=== PATIENT | male | born 1940 | race Caucasian/White ===

== ENCOUNTER 2022-11-03 14:38 | Emergency (ER) | payer MEDICARE, BC ==
[~2022-11-03] VITALS: Ht 170.2 cm; Wt 91.8 kg
[~2022-11-03 14:38] MED LIST: AMBIEN 10MG10 M1 PO; ASPIRIN E.C. 8181 MG PO; FENOFIBRATE MI200 MG PO; FORTAMET1000 MG PO; GABAPENTIN300 MG PO; GARLIQUE400 MG PO; GLYBURIDE5 MG PO; LOPRESSOR 225 MG/TAB PO; LORTAB 5/500 501 TAB PO; MAREPA1200 MG PO; MICARDIS HCT 121 TAB PO; MULTIPLE VITAMI1 CAP PO; NTG 0.4; PLAVIX 75MG TAB75 MG PO; SIMVASTATIN80 MG PO; TUSS PO; ZITHROMAX Z PA250 MG PO; ZYMAR OPHTH SOL5 ML OP
[2022-11-03 15:10] LABS: PARTIAL THROMBOPLASTIN TIME 17.9 SECONDS (26.0-37.0)
[2022-11-03 15:17] LABS: ALBUMIN 2.5 gm/dL (3.4-4.8); BILIRUBIN,TOTAL 0.4 mg/dL (0.2-1.2); CALCIUM 8.8 mg/dL (8.4-10.2); CREATININE, serum 1.85 mg/dL (0.72-1.25); POTASSIUM 4.2 mmol/L (3.5-4.5); TOTAL PROTEIN 5.8 gm/dL (6.2-8.1)
[2022-11-03 15:27] LABS: TROPONIN-I 0.034 ng/mL (0.00-0.033)
[2022-11-03 15:37] LABS: BASO # 0.1 K/mm3 (0.0-0.2); BASO % 0.5 % (0.0-2.0); GRAN # 13.8 K/mm3 (1.4-6.5); GRAN % 88.9 % (42.2-75.2); HEMOGLOBIN 10.1 g/dl (13.5-18.0); LYMPH % 6.6 % (20.0-51.0); MEAN CELL VOLUME 88 fl (80.0-100.0); MEAN CORPUSCULAR HEMOGLOBIN 30 pg (27-31); MEAN CORPUSCULAR HGB CONC 34 g/dl (33.0-37.0); MONO # 0.5 K/mm3 (0.1-0.6); MONO % 3.4 % (1.7-9.3); PLATELET COUNT 382 K/mm3 (130-400); RED BLOOD COUNT 3.37 M/mm3 (4.20-5.60); REDCELL DISTRIBUTION WIDTH-CV 13.9 % (11.5-14.5)
[2022-11-03 15:39] LABS: HEMATOCRIT 29.7 % (42.0-52.0)
[2022-11-03] MEDS ORDERED: AMBIEN 10MG10 MG (17:13)
[2022-11-03] MEDS ORDERED: GLUCOPHAGE1000 MG PO (17:13)
[2022-11-03] MEDS ORDERED: GLUCOTROL 5M5 MG/TAB PO (17:14)
[2022-11-03] MEDS ORDERED: LOPRESSOR 550 MG/TAB PO (17:14)
[2022-11-03] MEDS ORDERED: LOPID 600M600 MG/TAB PO (17:14)
[2022-11-03] MEDS ORDERED: HYZAAR 12.5 MG-1 TAB (17:16)
[2022-11-03] MEDS ORDERED: NEURONTIN300 MG/CAP (17:16)
[2022-11-03] MEDS ORDERED: PRAVACHOL 40MG40 MG PO (17:17)
[2022-11-03] MEDS ORDERED: BACTROBAN 22GM22 GM (17:20)
[2022-11-03 19:50] VITALS: BP 129/90; PULSE 90; TEMP 98.3
== END 2022-11-03 19:55 | disposition short-term general hospital (02) ==
LOC: COL.ER 14:38
PROVIDERS: Emergency Medicine; Family Medicine
DX: S50.812A Abrasion of left forearm, initial encounter (principal); I21.4 Non-ST elevation (NSTEMI) myocardial infarction; I48.91 Unspecified atrial fibrillation; R11.10 Vomiting, unspecified; R77.8 Other specified abnormalities of plasma proteins; D72.829 Elevated white blood cell count, unspecified; R79.1 Abnormal coagulation profile; R74.8 Abnormal levels of other serum enzymes; R94.4 Abnormal results of kidney function studies; E11.9 Type 2 diabetes mellitus without complications; I10 Essential (primary) hypertension; Z79.82 Long term (current) use of aspirin; Z79.899 Other long term (current) drug therapy; W19.XXXA Unspecified fall, initial encounter; W22.01XA Walked into wall, initial encounter
CPT/HCPCS: C9113; J2270; J2405; J7040

== ENCOUNTER → 2023-05-26 | Outpatient (CLI) | payer MEDICARE, BC ==
[~2023-05-26] MED LIST changes: +AMBIEN 10MG10 MG; +BACTROBAN 22GM22 GM; +GLUCOPHAGE1000 MG PO; +GLUCOTROL 5M5 MG/TAB PO; +HYZAAR 12.5 MG-1 TAB; +LOPID 600M600 MG/TAB PO; +LOPRESSOR 550 MG/TAB PO; +NEURONTIN300 MG/CAP; +PRAVACHOL 40MG40 MG PO
== END ==
LOC: COL.RAD
DX: C44.42 Squamous cell carcinoma of skin of scalp and neck (principal); G31.9 Degenerative disease of nervous system, unspecified; M47.812 Spondylosis without myelopathy or radiculopathy, cervical region; R91.1 Solitary pulmonary nodule

== ENCOUNTER 2023-09-03 19:08 | Inpatient (IN) | payer MEDICARE, BC ==
[~2023-09-03] VITALS: Ht 180.3 cm; Wt 81.7 kg
[~2023-09-03 19:08] MED LIST changes: -NEURONTIN300 MG/CAP; +NEURONTIN300 MG/CAP PO
[2023-09-03] MEDS ORDERED: cefTRIAXone 1 G in Water For Injection,Sterile 10 ML IV ONE (21:15)
[2023-09-03 21:21] LABS: BASO # 0.1 K/mm3 (0.0-0.2); BASO % 0.6 % (0.0-2.0); EOS # 0.3 K/mm3 (0.0-0.7); EOS % 1.5 % (0.0-4.0); GRAN # 15.3 K/mm3 (1.4-6.5); GRAN % 83.7 % (42.2-75.2); HEMATOCRIT 27.3 % (42.0-52.0); HEMOGLOBIN 8.8 g/dl (13.5-18.0); LYMPH # 1.4 K/mm3 (1.2-3.4); LYMPH % 7.6 % (20.0-51.0); MEAN CELL VOLUME 86 fl (80.0-100.0); MEAN CORPUSCULAR HEMOGLOBIN 28 pg (27-31); MEAN CORPUSCULAR HGB CONC 32 g/dl (33.0-37.0); MEAN PLATELET VOLUME 9.6 fl (7.4-10.4); MONO # 1.1 K/mm3 (0.1-0.6); MONO % 6.1 % (1.7-9.3); PLATELET COUNT 522 K/mm3 (130-400); RED BLOOD COUNT 3.16 M/mm3 (4.20-5.60)
[2023-09-03 21:33] LABS: ALBUMIN 2.1 gm/dL (3.4-4.8); BILIRUBIN,TOTAL 0.3 mg/dL (0.2-1.2); C-REACTIVE PROTEIN 10.66 mg/dL (0.00-0.50); CALCIUM 9.8 mg/dL (8.4-10.2); CREATININE, serum 1.99 mg/dL (0.72-1.25); POTASSIUM 4.7 mmol/L (3.5-4.5); TOTAL PROTEIN 6.7 gm/dL (6.2-8.1)
[2023-09-03] MEDS ORDERED: Acetaminophen 325 MG TAB PO PRN (22:30)
[2023-09-03] MEDS ORDERED: Vancomycin 1.5 GM,Special Dose/Pharmacy Prepared 1.5 GM in NS 250 ML IV SCH (22:30)
[2023-09-03] MEDS ORDERED: Melatonin 3 MG TAB PO PRN (22:30)
[2023-09-03] MEDS ORDERED: Ondansetron 4 MG/2 ML VIAL IV PRN (22:30)
[2023-09-03] MEDS ORDERED: Vancomycin 1.5 GM,Special Dose/Pharmacy Prepared 1.5 GM in NS 250 ML IV ONE (23:15)
[2023-09-04] VITALS (12 sets, daily range): BP systolic 122–169; BP diastolic 70–89; PULSE 59–102; TEMP 97.6–98.1
[2023-09-04] MEDS ORDERED: NS 1,000 ML IV ONE (01:15)
[2023-09-04] MEDS ORDERED: Morphine 4 MG/ML VIAL IV ONE (01:15)
[2023-09-04] MEDS ORDERED: Naloxone 0.4 MG/ML VIAL IV PRN (01:15)
[2023-09-04] MEDS ORDERED: HYDROcodone/Acetaminophen 10-325 MG TAB PO PRN (01:15)
[2023-09-04] MEDS ORDERED: Glucagon 1 MG VIAL IM PRN (01:45)
[2023-09-04] MEDS ORDERED: Dextrose 50% Water 25 GM/50 ML SYRINGE IV PRN (01:45)
[2023-09-04] MEDS ORDERED: Dextrose (Glucose) 15 GM (4 x 3.75 GM) Chewable TABLET PACK PO PRN (01:45)
--- NOTE | 2023-09-04 02:01 | NUR ---
Vancomycin Initial Dosing Pharmacy Note Ordering provider: Sergei Nunez MD Indication/duration: Scalp wound s/p squamous cell carcinoma x 7 days. Relevant comorbidities: CKD, HTN, DM. Outpatient tx with cefdinir. LABS: WBC = 18.3, SCr = 1.99 Recommendation: Will draw troughs and follow levels. Loading dose: 1.5 grams Maintenance dose: 750 mg every 24 hours Trough goal: 10-15 ug/mL
[2023-09-04] MEDS ORDERED: NORVASC 10MG10 MG PO (02:30)
[2023-09-04] MEDS ORDERED: ASPIRIN 81M81 MG/TA2 PO (02:31)
[2023-09-04] MEDS ORDERED: VITAMIN B12 781 TAB PO (02:33)
[2023-09-04] MEDS ORDERED: MULTI-VITAMIN W1 TA1 PO (02:43)
[2023-09-04] MEDS ORDERED: PROTONIX 40MG T40 MG PO (02:44)
[2023-09-04] MEDS ORDERED: VITAMIN C500 MG PO (02:45)
[2023-09-04] MEDS ORDERED: DOXYCYCLINE HY100 MG PO (02:46)
[2023-09-04] MEDS ORDERED: NORCO 325 MG-51 TAB PO (02:48)
[2023-09-04] MEDS ORDERED: FENTANYL 12MCG TD (02:52)
[2023-09-04] MEDS ORDERED: LOPRESSOR 225 MG/TAB PO (02:52)
[2023-09-04] MEDS ORDERED: OMNICEF 300MG300 MG PO (02:53)
--- NOTE | 2023-09-04 03:01 | NUR ---
patient arrived from ED at 0030, alert and oriented x4 with daughter at bedside. daughter provided information for med rec before going home. pt denies chest pain and shortness of breath. reports pain around head wound, morphine given at this time, pt now resting. IV in LAC is patent, site is clean dry and intact. ambulates to bathroom with steady gait but can be weak at times, educated on using call light for assistance getting up, verbally understood. dressing changed on top/back of squamous cell skin cancer head wound, deep open about 4 to 5 inches in diameter wound with eschar skin tissue and white/yellowish weeping drainage, petrolleum gauze left per MIRIAN Mccann and dressing changed with newly applied 4x4 gauze placed on top. brown skin tags/ abnormalities noted on scalp. fentanyl patch on right chest. pt has no further needs, questions or concerns at this time. call light within reach. will continue to monitor.
[2023-09-04] MEDS ORDERED: Insulin Aspart (NovoLOG) SQ SCH (08:00)
[2023-09-04 08:02] LABS: BASO # 0.1 K/mm3 (0.0-0.2); BASO % 0.6 % (0.0-2.0); EOS # 0.3 K/mm3 (0.0-0.7); GRAN # 12.5 K/mm3 (1.4-6.5); GRAN % 76.5 % (42.2-75.2); MEAN CELL VOLUME 84 fl (80.0-100.0); MEAN CORPUSCULAR HGB CONC 33 g/dl (33.0-37.0); MEAN PLATELET VOLUME 9.3 fl (7.4-10.4); MONO # 1.4 K/mm3 (0.1-0.6); MONO % 8.3 % (1.7-9.3); PLATELET COUNT 452 K/mm3 (130-400); RED BLOOD COUNT 2.67 M/mm3 (4.20-5.60); REDCELL DISTRIBUTION WIDTH-CV 14.1 % (11.5-14.5)
[2023-09-04 08:04] LABS: HEMATOCRIT 22.3 % (42.0-52.0); HEMOGLOBIN 7.3 g/dl (13.5-18.0); MEAN CORPUSCULAR HEMOGLOBIN 27 pg (27-31)
--- NOTE | 2023-09-04 08:30 | NUR ---
PT LAYING IN BED UPON ENTERING. ASSESSMENT DONE, MEDS GIVEN PER ORDER. LEFT AC INT PATENT. PT REPORTS 2/10 PAIN TO SCALP WOUND, UNABLE TO GET PRN AT THIS TIME. PT HAS FENTANYL PATCH TO RIGHT CHEST. DRESSING ON HEAD, CLEAN DRY AND INTACT AT THIS TIME. PT DENIES NEEDS AT THIS TIME. BED IN LOWEST POSITION, CALL LIGHT IN REACH.
[2023-09-04 08:37] LABS: CALCIUM 9.3 mg/dL (8.4-10.2); CREATININE, serum 1.73 mg/dL (0.72-1.25); POTASSIUM 4.1 mmol/L (3.5-4.5)
[2023-09-04] MEDS ORDERED: ceFAZolin 2 G in Water For Injection,Sterile 20 ML IV SCH (09:00)
--- NOTE | 2023-09-04 12:02 | NUR ---
MODERATE AMOUNT OF DRAINAGE NOTED TO DRESSING
--- NOTE | 2023-09-04 12:06 | NUR ---
WOUND CARE CONSULT WRITTEN ON LIST AT [facility] DESK
[2023-09-04] MEDS ORDERED: Morphine 4 MG/ML VIAL IV PRN (12:15)
--- NOTE | 2023-09-04 16:45 | NUR ---
SW met with patient to complete intake. Daughter Maggie Garcia present during intake and answered most questions due to patient resting. patient lives in [facility] with spouse Fifi [phone]. Independent with ADL's, does not utilize DME nor home health services at this time. PCP is [facility], and pharmacy is [facility]. Patient plans to return to his home upon DC. SW will continue to follow. DC plan: home
--- NOTE | 2023-09-04 18:42 | NUR ---
ANTIBIOTICS STARTED PER ORDER. LARGE AMOUNT OF PURULENT DRAINAGE NOTED TO HEAD DRESSING, DRESSING REMOVED. PT HAS A LARGE CRATER LIKE WOUND TO THE TOP OF HIS HEAD. PINK COLOR TO RIM OF WOUND AND THIN MALODOROUS PURULENT DRAINAGE NOTED TO INSIDE OF WOUND. WOUND CARE HASNT SEEN PT YET AND FAMILY WHO HAS BEEN DOING PTS DRESSING CHANGES TOLD THIS NURSE WHAT WAS USED. VASELINE GAUZE, NONSTICK TELFA AND GAUZE SECURED WITH PAPER TAPE. PT GIVEN PRN NORCO. PT DENIES NEEDS AT THIS TIME. BED IN LOWEST POSITION, CALL LIGHT IN REACH. DAUGHTER AT BEDSIDE UPON THIS NURSE LEAVING
--- NOTE | 2023-09-04 20:40 | NUR ---
Patient resting in bed. Rates his pain at 4/10 at this time. Denies any needs. Assessment complete. Heart rate irregular. IV in right AC flushes easily with no complications. Dressing on posterior head is clean, dry, and intact. Call light and personal items in reach. Bed in low position
[2023-09-04] MEDS ORDERED: Gemfibrozil 600 MG TAB PO SCH (21:00)
[2023-09-04] MEDS ORDERED: Gabapentin 300 MG CAP PO SCH (21:00)
[2023-09-04] MEDS ORDERED: Pravastatin 20 MG TAB PO SCH (21:00)
--- NOTE | 2023-09-04 23:03 | NUR ---
Hospitalist called for an irregular heart rate and unable to get a consistent rate on monitor. Recieved orders for an EKG at this time.
--- NOTE | 2023-09-04 23:35 | NUR ---
Hospitalist called and notified of EKG results of "Atrial fibrillation with aberrant conduction or ventricular premature complexes and heart rate reading 98bpm." States he will take a look at the patient's chart.
[2023-09-04] MEDS ORDERED: Metoprolol Tartrate 25 MG TAB PO SCH (23:45)
[2023-09-05] VITALS (12 sets, daily range): BP systolic 123–169; BP diastolic 58–84; PULSE 49–95; TEMP 97.7–98.8
--- NOTE | 2023-09-05 05:40 | NUR ---
Patient resting in bed with eyes closed. Respirations even and unlabored. No signs of pain or needs at this time. Patient was found to have an irregular heart rate at beginning of shift. Hospitalist was called and EKG was ordered which read A-fib. Patients home metoprolol resumed and placed on tele. No pain over night. Call light and personal items in reach. Bed in low position.
--- NOTE | 2023-09-05 08:00 | NUR ---
PT LAYING IN BED UPON ENTERING. ASSESSMENT DONE, MEDS GIVEN PER ORDER. PT REPORTS MILD PAIN AT THIS TIME. INT TO LEFT AC PATENT. FENTANYL PATCH TO RIGHT CHEST REMOVED AND A NEW ONE PLACED TO LEFT CHEST. DRESSING TO PTS HEAD INTACT WITH SMALL AMOUNT OF DRAINAGE NOTED TO DRESSING. THIS NURSE NOTIFIED PT THAT DUE TO BEING IN AFIB THROUGHT THE NIGHT THE BED ALARM NEEDS TO BE PUT ON. PT REFSUES AND STATES THAT HE WOULD PREFER NOT TO. PT REEDUCATED ON REASONING AND REFUSES. PT DENIES NEEDS AT THIS TIME. BED IN LOWEST POSITION, CALL LIGHT IN REACH
[2023-09-05 08:11] LABS: BASO # 0.1 K/mm3 (0.0-0.2); BASO % 0.6 % (0.0-2.0); EOS # 0.4 K/mm3 (0.0-0.7); EOS % 2.4 % (0.0-4.0); GRAN # 13.1 K/mm3 (1.4-6.5); LYMPH # 2.1 K/mm3 (1.2-3.4); LYMPH % 12.3 % (20.0-51.0); MEAN CELL VOLUME 86 fl (80.0-100.0); MEAN CORPUSCULAR HGB CONC 32 g/dl (33.0-37.0); MEAN PLATELET VOLUME 9.5 fl (7.4-10.4); MONO # 1.2 K/mm3 (0.1-0.6); MONO % 7.1 % (1.7-9.3); PLATELET COUNT 548 K/mm3 (130-400); RED BLOOD COUNT 2.77 M/mm3 (4.20-5.60)
[2023-09-05 08:20] LABS: HEMATOCRIT 23.7 % (42.0-52.0); HEMOGLOBIN 7.6 g/dl (13.5-18.0); MEAN CORPUSCULAR HEMOGLOBIN 27 pg (27-31)
[2023-09-05 08:33] LABS: CALCIUM 9.3 mg/dL (8.4-10.2); CREATININE, serum 1.81 mg/dL (0.72-1.25); MAGNESIUM 1.5 mg/dL (1.6-2.6); POTASSIUM 4.3 mmol/L (3.5-4.5)
[2023-09-05] MEDS ORDERED: fentaNYL 12 MCG 72 HR PATCH TD SCH (09:00)
[2023-09-05] MEDS ORDERED: MIRALAX PA17 GM/Dose PO (12:04)
--- NOTE | 2023-09-05 12:05 | NUR ---
PT TELLS THIS NURSE THAT HE IS WORRIED THAT HE HASNT HAD A BOWEL MOVEMETN SINCE ADMISSION AND THAT HE USUALLY TAKES MIRALAX EVERY OTHER DAY. HOSPITALIST NOTIFIED AND GAVE THIS NURSE A VERBAL ORDER FOR THIS MEDICATION
[2023-09-05] MEDS ORDERED: Polyethylene Glycol 3350 17 GM PDS PO PRN (12:15)
--- NOTE | 2023-09-05 18:20 | NUR ---
ANTIBIOTICS HUNG PER ORDER. HOSPITALIST AND FAMILY AT BEDSIDE. PT DENIES NEEDS AT THIS TIME. TELE REMOVED PER HOSPITALIST VERBAL ORDER AND PT CHANGED TO PERSONAL CLOTHES. BED IN LOWEST POSITION, CALL LIGHT IN REACH
--- NOTE | 2023-09-05 19:30 | NUR ---
Patient resting in bed with family at bedside. Infectious diseases doctor speaking with patient and family. Removed patients dressing to show the doctor and redressed wound with vasaline gauze, 4x4 gauze pads, half ABD pad, and tape. Rates his pain at 7/10, prn pain meds given. Assessment complete. IV in left forearm flushes easily with no complications. Denies any needs at this time. Call light and personal items in reach. Bed in low position.
--- NOTE | 2023-09-05 19:57 | NUR ---
REPORT GIVEN TO TEE CLARKE
[2023-09-06] VITALS (11 sets, daily range): BP systolic 121–166; BP diastolic 69–105; PULSE 62–78; TEMP 97.3–98.2
[2023-09-06] MEDS ORDERED: Zolpidem 5 MG TAB PO ONE (00:15)
--- NOTE | 2023-09-06 00:30 | NUR ---
Hospitalist Ramy called for patient stating he is unable to sleep and would like something to help him sleep and melatonin doesn't work for him. Patient is upset about the news the ID doctor told him and is having a hard time going to sleep. Stated he would put in orders for a one time does of Ambien.
--- NOTE | 2023-09-06 05:50 | NUR ---
Patient resting in bed with eyes closed. Respirtations even and unlabored. No signs of pain or needs at this time. Patient got Ambien about 0030 to help him sleep. Dressing changed on 09/05 at 1945. No changes over night Call light and personal items in reach. Bed in low position.
[2023-09-06] MEDS ORDERED: Gemfibrozil 600 MG TAB PO SCH (08:00)
--- NOTE | 2023-09-06 09:41 | NUR ---
Pt alert and oriented at this time. Pt offers no complaints. States pain is 5/10 but declines pain medication at this time. Dressing to wound on back of head changed per instructions. Call light in reach.
[2023-09-06] MEDS ORDERED: fentaNYL Patch Removal/Drugbuster TD SCH (11:00)
[2023-09-06] MEDS ORDERED: fentaNYL 25 MCG 72 HR PATCH TD SCH (11:00)
[2023-09-06] MEDS ORDERED: ZOFRAN 4MG T4 MG/TAB PO (13:00)
[2023-09-06] MEDS ORDERED: COZAAR100 MG PO (13:02)
[2023-09-06] MEDS ORDERED: B-121000 MCG PO (13:03)
--- NOTE | 2023-09-06 16:32 | NUR ---
Retail Merchandising Specialist attended clinical rounds with the team. Hospitalist reviewed options for antibiotics and patient stated he would prefer oral antibiotics.
--- NOTE | 2023-09-06 20:30 | NUR ---
Patient resting in bed. Rates his pian at 5/10, prn pain meds given. Denies any needs at this time. Assessment complete. IV in left AC flushes easily with no complications. Call light and personal items in reach. Bed in low position.
[2023-09-07] VITALS (7 sets, daily range): BP systolic 128–160; BP diastolic 65–83; PULSE 68–84; TEMP 97.4–97.7
--- NOTE | 2023-09-07 05:50 | NUR ---
Patient resting in bed. Denies any pain at this time. Water refreshened, denies any other needs. No changes over night. Call light and personal items in reach. Bed in low position.
[2023-09-07 07:13] LABS: BASO # 0.1 K/mm3 (0.0-0.2); EOS # 0.3 K/mm3 (0.0-0.7); EOS % 2.5 % (0.0-4.0); GRAN # 9.2 K/mm3 (1.4-6.5); GRAN % 71.7 % (42.2-75.2); LYMPH # 1.9 K/mm3 (1.2-3.4); MEAN CELL VOLUME 86 fl (80.0-100.0); MEAN CORPUSCULAR HGB CONC 32 g/dl (33.0-37.0); MEAN PLATELET VOLUME 9.1 fl (7.4-10.4); MONO # 1.2 K/mm3 (0.1-0.6); MONO % 9.3 % (1.7-9.3); PLATELET COUNT 465 K/mm3 (130-400); RED BLOOD COUNT 2.65 M/mm3 (4.20-5.60); REDCELL DISTRIBUTION WIDTH-CV 14.1 % (11.5-14.5)
[2023-09-07 07:23] LABS: CALCIUM 8.6 mg/dL (8.4-10.2); CREATININE, serum 2.52 mg/dL (0.72-1.25); POTASSIUM 3.9 mmol/L (3.5-4.5)
[2023-09-07 07:25] LABS: HEMATOCRIT 22.7 % (42.0-52.0); HEMOGLOBIN 7.3 g/dl (13.5-18.0); MEAN CORPUSCULAR HEMOGLOBIN 28 pg (27-31)
[2023-09-07] MEDS ORDERED: NS 1,000 ML IV SCH (08:00)
[2023-09-07] MEDS ORDERED: LEVAQUIN 750MG750 M1 PO (09:44)
[2023-09-07] MEDS ORDERED: FENTANYL 25 MCG TD (09:47)
[2023-09-07] MEDS ORDERED: levoFLOXacin 750 MG TAB PO ONE (10:00)
--- NOTE | 2023-09-07 10:11 | NUR ---
PT RESTING IN BED, WOUND CARE IN TO SEE PT, THEN HOSPITALIST ROUNDED DISCHARGE ORDERS IN. PT REPORTS THAT DAUGHTER WILL COME TO PICK HIM UP AFTER COMPLETES DIALYSIS. AROUND 1500
--- NOTE | 2023-09-07 12:47 | NUR ---
Patient to discharge today with oral antibiotics. SW met with patient to present and review IM. Patient verbalized understanding and provided signature. SW placed form in chart and provided copy to patient. Discharge Plan: Home
--- NOTE | 2023-09-07 15:26 | NUR ---
DISCHARGE INSTRUCTIONS REVIEWED WITH PT AND DAUGHTER, QUESTIONS SOLIITED AND ANSWERED. PT LEFT WITH STAFF PER WHEEL CHAIR.
== END 2023-09-07 15:29 | disposition home or self-care (01) | DRG 605 ==
LOC: COL.ER 19:08 → MEDICAL 22:24
PROVIDERS: Internal Medicine; Personal Emergency Response Attendant; Physician Assistant; ADMIT Internal Medicine
DX: S01.00XA Unspecified open wound of scalp, initial encounter (principal); R78.81 Bacteremia; C44.42 Squamous cell carcinoma of skin of scalp and neck; G89.3 Neoplasm related pain (acute) (chronic); I25.10 Atherosclerotic heart disease of native coronary artery without angina pectoris; E78.5 Hyperlipidemia, unspecified; E11.22 Type 2 diabetes mellitus with diabetic chronic kidney disease; I12.9 Hypertensive chronic kidney disease with stage 1 through stage 4 chronic kidney disease, or unspecified chronic kidney disease; B96.5 Pseudomonas (aeruginosa) (mallei) (pseudomallei) as the cause of diseases classified elsewhere; E87.5 Hyperkalemia; N18.32 Chronic kidney disease, stage 3b; Z95.5 Presence of coronary angioplasty implant and graft; Z79.82 Long term (current) use of aspirin; Z79.84 Long term (current) use of oral hypoglycemic drugs; Z79.899 Other long term (current) drug therapy; Z87.891 Personal history of nicotine dependence; Z23 Encounter for immunization
CPT/HCPCS: J0690; J0696; J1815; J2270; J2543; J3370; J7030; J7050; Q3014

== ENCOUNTER → 2024-05-04 | Outpatient (REF) | payer MEDICARE, BC ==
[~2024-05-04] MED LIST changes: +ASPIRIN 81M81 MG/TA2 PO; +B-121000 MCG PO; +COZAAR100 MG PO; +DOXYCYCLINE HY100 MG PO; +FENTANYL 12MCG TD; +FENTANYL 25 MCG TD; +LEVAQUIN 750MG750 M1 PO; +MIRALAX PA17 GM/Dose PO; +MULTI-VITAMIN W1 TA1 PO; +NORCO 325 MG-51 TAB PO; +NORVASC 10MG10 MG PO; +OMNICEF 300MG300 MG PO; +PROTONIX 40MG T40 MG PO; +VITAMIN B12 781 TAB PO; +VITAMIN C500 MG PO; +ZOFRAN 4MG T4 MG/TAB PO
[2024-05-04 21:16] LABS: BURR CELLS 1+; LYMPHOCYTE 12 % (20.0-51.0); NEUTROPHILS 83 % (42.0-75.2)
[2024-05-04 21:17] LABS: PLATELET ESTIMATE NORMAL (NORMAL)
== END ==
LOC: ZCOL.LAB 19:30
PROVIDERS: Family Medicine
DX: C44.42 Squamous cell carcinoma of skin of scalp and neck (principal)